=== PATIENT | female | born 1970 | race Hispanic/Latino ===

== ENCOUNTER 2016-12-24 18:14 | Emergency (ER) | payer MEDICAID, OTHER ==
[2016-12-24 18:51] VITALS: BP 127/74; PULSE 81; RESP 16; TEMP 98.3; O2SAT 99
--- NOTE | 2016-12-24 19:36 | ED PDOC ---
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 DENIES ANY DYSURIA/ NOTES URINARY INCONTINENCE. NOTES CRAMPY SENSATION LOWER ABDOMINAL PAIN. NO VOMITING/FEVERS/CHILLS.) Past Medical History Reviewed: Historical Data, Nursing Documentation, Vital Signs Vital Signs: Last Vital Signs Temp 98.3 F 12/24/16 18:47 Pulse 81 12/24/16 18:47 Resp 16 12/24/16 18:47 BP 127/74 12/24/16 18:47 Pulse Ox 99 12/24/16 18:47 - Medical History PMH: Anxiety, Hypothyroidism - Family History Family History: States: No Known Family Hx - Immunization History Hx Tetanus Toxoid Vaccination: No Hx Influenza Vaccination: No Hx Pneumococcal Vaccination: No - Home Medications Home Medications: Ambulatory Orders Medication Instructions Recorded Alprazolam [Xanax] 0.5 mg PO DAILY 10/07/13 Dicyclomine [Bentyl] 20 mg PO Q6 PRN #12 tab 02/23/15 - Allergies Allergies/Adverse Reactions: Allergies Allergy/AdvReac Type Severity Reaction Status Date / Time No Known Allergies Allergy Verified 02/23/15 15:30 Review of Systems ROS Statement: Except As Marked, All Systems Reviewed And Found Negative Physical Exam - Reviewed Nursing Documentation Reviewed: Yes Vital Signs Reviewed: Yes - Physical Exam Appears: Positive for: Well, Non-toxic, No Acute Distress Head Exam: Positive for: ATRAUMATIC, NORMAL INSPECTION, NORMOCEPHALIC Skin: Positive for: Normal Color, Warm, DRY Eye Exam: Positive for: EOMI, Normal appearance, PERRL ENT: Positive for: Normal ENT Inspection Neck: Positive for: Normal, Painless ROM Cardiovascular/Chest: Positive for: Regular Rate, Rhythm Respiratory: Positive for: CNT, Normal Breath Sounds Gastrointestinal/Abdominal: Positive for: Normal Exam, Bowel Sounds, Soft Pelvic Exam: Positive for: Other (CYSTOCELE NOTED. VAGINAL WALL DROP SUPERIORLY. NO SIGNS OF INFECTION.) Back: Positive for: Normal Inspection Extremity: Positive for: Normal ROM Neurologic/Psych: Positive for: Alert, Oriented - Laboratory Results Urine dip results: Positive for: Blood. Negative for: Leukocyte Esterase, Nitrate, Ketones, Glucose, Bilirubin, Protein - ECG O2 Sat by Pulse Oximetry: 99 Disposition - Clinical Impression Clinical Impression: Cystocele - Patient ED Disposition Is Patient to be Admitted: No - Disposition [facility] Disposition: Routine/Home Disposition Time: 19:37 Condition: FAIR Instructions: Cystocele (ED)
[2016-12-24 19:50] LABS: SQUAMOUS EPITHIAL 1 /hpf (0-5); URINE BILIRUBIN NEGATIVE (NEGATIVE); URINE BLOOD MODERATE (NEGATIVE); URINE CLARITY CLEAR (Clear); URINE COLOR YELLOW (YELLOW); URINE GLUCOSE (UA) NEG (Normal); URINE LEUKOCYTE ESTERASE NEG Leu/uL (Negative); URINE NITRATE NEGATIVE (NEGATIVE); URINE PROTEIN NEGATIVE (NEGATIVE); URINE UROBILINOGEN 0.2-1.0 mg/dL (0.2-1.0)
== END 2016-12-24 20:12 | disposition home or self-care (01) ==
LOC: H.ER 18:14
DX: N81.10 Cystocele, unspecified (principal)